=== PATIENT | male | born 2000 | race Two or more races ===

== ENCOUNTER 2021-12-18 17:50 | Emergency (ER) | payer BC ==
[~2021-12-18] VITALS: Ht 170.2 cm; Wt 97.5 kg
--- NOTE | 2021-12-18 18:51 | NUR ---
EKG DONE, PT SEEN AND EVALUATED BY MINI VELAZQUEZ. CLEARED. D/C IN STABLE CONDITION.
[2021-12-18 18:52] VITALS: BP 130/87
== END 2021-12-18 18:52 | disposition home or self-care (01) ==
LOC: ER 18:12
DX: F41.9 Anxiety disorder, unspecified (principal); R00.2 Palpitations; R00.0 Tachycardia, unspecified; T40.715A Adverse effect of cannabis, initial encounter; J45.909 Unspecified asthma, uncomplicated; E78.00 Pure hypercholesterolemia, unspecified; Y92.89 Other specified places as the place of occurrence of the external cause